=== PATIENT | female | born 1945 | race Caucasian/White ===

== ENCOUNTER → 2018-03-04 | Outpatient (CLI) | payer MEDICARE ==
[~2018-03-04] MED LIST: AVONEX IM; BACDS PO; CELE-1 PO; CIPR-344 PO; DOC100 PO; DOCU-416 PO; DONE10TA64 PO; LANS30CA70 PO; LISI2.5T60 PO; LOR5 PO; MECL-205 PO; MODA200T39 PO; OXYC-865 PO; PER PO; PHEN-530 PO; PHENA200 PO; TAM4 PO; TOLT2CAP7 PO; TOLT4CAP13 PO; VEN75 PO
== END ==
LOC: LAB 20:06
PROVIDERS: ATTEND Nurse Practitioner Psychiatric/Mental Health
DX: I10 Essential (primary) hypertension (principal); E78.5 Hyperlipidemia, unspecified; G35 Multiple sclerosis

== ENCOUNTER → 2018-09-03 | Outpatient (CLI) | payer MEDICARE ==
[2018-09-03 14:13] LABS: PLATELET COUNT, AUTOMATED 283 K/uL (150-450)
[2018-09-03 14:36] LABS: LDL CHOLESTEROL 86 mg/dl
== END ==
LOC: LAB 13:53
PROVIDERS: ATTEND Nurse Practitioner Psychiatric/Mental Health
DX: E78.5 Hyperlipidemia, unspecified (principal); G47.9 Sleep disorder, unspecified; I10 Essential (primary) hypertension
CPT/HCPCS: 36415; 82040; 82247; 82310; 82374; 82435; 82465; 82565; 82947; 83718; 84075; 84132; 84155; 84295; 84443; 84450; 84460; 84478; 84520; 85025

== ENCOUNTER → 2018-12-29 | Outpatient (CLI) | payer MEDICARE ==
--- NOTE | 2018-12-29 13:40 | RADIOLOGY IMAGING REPORT ---
FACILITY: [facility] PATIENT NAME: Abbey Cook : 1945 MR: [id number] V: [id number] EXAM DATE: ORDERING PHYSICIAN: ARISTIDES HAM TECHNOLOGIST: Location: [facility] Patient: Abbey Cook : 1945 Visit/Account:[id number] Date of Sevice: 12/29/2018 Study: MRI brain without the use of intravenous contrast Indication: Multiple sclerosis Comparison study: October 02, 2016 Technique: Multiplanar MRI sequences were obtained through the brain without the use of intravenous g adolinium contrast. The examination demonstrates no evidence of acute intracranial hemorrhage. There is no evidence of ex tra-axial collection or hydrocephalus. A diffusion-weighted sequence was performed and demonstrates no evidence of active ischemia. There is no evidence of active infarction. The examination demonstrates the presence of numerous areas of high T2-weighted signal present within the periventricular and central white matter of the supratentorial brain. As compared to the previo us study, there is no significant change in the appearance of these lesions. There is no evidence of new lesions within the brain parenchyma. The orbits are grossly unremarkable. There is no significant abnormality of the paranasal sinuses present. IMPRESSION: Numerous white matter lesions, consistent with multiple sclerosis. There is no significa nt change as compared to the previous study. Report Dictated By: Porfirio Alexander at 12/29/2018 1:31 PM Report E-Signed By: Porfirio Alexander at 12/29/2018 1:36 PM WSN:[id number]
== END ==
LOC: MRI 12-25 00:59
PROVIDERS: ATTEND Psychiatry & Neurology Neurology
DX: G35 Multiple sclerosis (principal)
CPT/HCPCS: 70551

== ENCOUNTER → 2019-03-03 | Outpatient (CLI) | payer MEDICARE | LOC: LAB 14:56 | DX: C54.9 Malignant neoplasm of corpus uteri, unspecified (principal); N95.0 Postmenopausal bleeding | CPT/HCPCS: 36415; 86304 ==